=== PATIENT | female | born 1950 | race Caucasian/White ===

== ENCOUNTER 2016-10-07 07:40 | Emergency (ER) | payer MEDICARE, OTHER ==
[2016-10-07 07:48] VITALS: BP 152/78
--- NOTE | 2016-10-07 08:50 | ER Document Report ---
HPI - HPI Patient complains to provider of: left side jaw pain Onset: This morning Onset/Duration: Sudden Quality of pain: Achy Pain Level: 2 Context: Patient states that she frequently will clench and grind her teeth during her sleep. Patient states when she woke up this morning that her jaw initially would not fully open. Patient states that she massaged her jaw, she stretched it and felt multiple pops in her jaw. Patient was then able to fully open her jaw but complains of some continued soreness to the left side. Patient denies any recent injury. Associated Symptoms: Other - Left jaw pain Exacerbated by: Movement Relieved by: Denies Similar symptoms previously: Yes Recently seen / treated by doctor: No - ROS ROS below otherwise negative: Yes Systems Reviewed and Negative: Yes All other systems reviewed and negative - CONSTITUTIONAL Constitutional: DENIES: Fever - EENT Notes: Left jaw pain - CARDIOVASCULAR Cardiovascular: DENIES: Chest pain - RESPIRATORY Respiratory: DENIES: Trouble Breathing, Coughing - GASTROINTESTINAL Gastrointestinal: DENIES: Nausea, Patient vomiting - REPRODUCTIVE Reproductive: DENIES: : - MUSCULOSKELETAL Musculoskeletal: DENIES: Extremity pain, Back Pain, Neck Pain - DERM Skin Color: Normal Skin Problems: None Past Medical History - General Information source: Patient - Social History Smoking Status: Current Every Day Smoker Frequency of alcohol use: None Drug Abuse: None Occupation: none Lives with: Family Family History: Arthritis, CAD, DM, Hypertension, Malignancy Patient has suicidal ideation: No Patient has homicidal ideation: No - Past Medical History Cardiac Medical History: Reports: Hx Hypercholesterolemia, Hx Hypertension Renal/ Medical History: Reports: Hx Kidney Stones. Denies: Hx Peritoneal Dialysis Psychiatric Medical History: Reports: Hx Anxiety - panic attacks, Hx Depression Past Surgical History: Reports: Hx Breast Surgery, Hx Kidney (Renal Surgery) - lithotripsy, Hx Nose Surgery - Immunizations Hx Diphtheria, Pertussis, Tetanus Vaccination: - unsure when last tetnus Vertical Provider Document - CONSTITUTIONAL Agree With Documented VS: Yes Exam Limitations: No Limitations General Appearance: WD/WN, No Apparent Distress - INFECTION CONTROL TRAVEL OUTSIDE OF THE [place] IN LAST 30 DAYS: No - HEENT HEENT: Atraumatic, Normocephalic. negative: Pharyngeal Exudate, Pharyngeal Tenderness, Pharyngeal Erythema, Tympanic Membrane Red, Tympanic Membrane Bulging Notes: Mild tenderness with palpation of left TMJ joint. No crepitus appreciated. Patient able to fully open her jaw without any guarding. - NECK Neck: Normal Inspection, Supple. negative: Lymphadenopathy-Left, Lymphadenopathy-Right - RESPIRATORY Respiratory: Breath Sounds Normal, No Respiratory Distress, Chest Non-Tender O2 Sat by Pulse Oximetry: 96 - CARDIOVASCULAR Cardiovascular: Regular Rate, Regular Rhythm, No Murmur - MUSCULOSKELETAL/EXTREMETIES Musculoskeletal/Extremeties: MAEW - NEURO Level of Consciousness: Awake, Alert, Appropriate - DERM Integumentary: Warm, Dry, No Rash Course - Vital Signs Vital signs: Temp Pulse Resp BP Pulse Ox 97.8 F 71 14 152/78 H 96 10/07/16 07:47 10/07/16 07:47 10/07/16 07:47 10/07/16 07:47 10/07/16 07:47 Discharge - Discharge Clinical Impression: TMJ (temporomandibular joint syndrome), Hx of essential hypertension Condition: Stable Disposition: HOME, SELF-CARE Instructions: Temporomandibular Joint Syndrome ([facility]) Additional Instructions: Return immediately for any new or worsening symptoms Followup with your primary care provider, call tomorrow to make a followup appointment Follow up with supervisor lace tearing Soft diet You may try [id number] anti-inflammatory medication to help with your pain symptoms Forms: Elevated Blood Pressure Referrals: FRANCISCA VO MD [Primary Care Provider] - Follow up as needed ENT [Provider Group] - Follow up as needed [facility] [Provider Group] - Follow up as needed
== END 2016-10-07 08:57 | disposition home or self-care (01) ==
LOC: ER 07:40
DX: M26.622 Arthralgia of left temporomandibular joint (principal); G47.63 Sleep related bruxism; I10 Essential (primary) hypertension; F17.200 Nicotine dependence, unspecified, uncomplicated
CPT/HCPCS: 99283

== ENCOUNTER 2018-03-10 19:30 | Emergency (ER) | payer MEDICARE, OTHER ==
[2018-03-10 19:36] VITALS: BP 168/85
[2018-03-10] MEDS ORDERED: TETRACAINE HCL 0.5% OPH SOLN 4 ML OS ONE (21:31)
[2018-03-10] MEDS ORDERED: POLYMYXIN B SULFATE/TMP OPH SOLN (10 ML/ER DISP) OS PRN (21:45)
--- NOTE | 2018-03-10 21:48 | ER Document Report ---
HPI - HPI Patient complains to provider of: Left eye irritation Onset: This evening Onset/Duration: Gradual Pain Level: Denies Context: Patient presents complaining of left eye irritation and concern about possible foreign body in her eye. Patient states she has had discharged that she has had repeatedly cleaned from her eye. Patient does wear glasses but denies any use of contact lenses. Patient states when she has discharge in her eye her vision becomes blurry but after she removes the discharge her vision clears. Associated Symptoms: Other - Left eye drainage Exacerbated by: Denies Relieved by: Denies Similar symptoms previously: No Recently seen / treated by doctor: No - ROS ROS below otherwise negative: Yes Systems Reviewed and Negative: Yes All other systems reviewed and negative - CONSTITUTIONAL Constitutional: DENIES: Fever - EENT EENT: REPORTS: Eye problems - purulent drainage - NEURO Neurology: DENIES: Headache - DERM Skin Color: Normal Skin Problems: None Past Medical History - General Information source: Patient - Social History Smoking Status: Current Every Day Smoker Smoking Education Provided: Yes Frequency of alcohol use: None Drug Abuse: None Occupation: Retired Family History: Arthritis, CAD, DM, Hypertension, Malignancy Patient has suicidal ideation: No Patient has homicidal ideation: No - Past Medical History Cardiac Medical History: Reports: Hx Hypercholesterolemia, Hx Hypertension Renal/ Medical History: Reports: Hx Kidney Stones. Denies: Hx Peritoneal Dialysis Psychiatric Medical History: Reports: Hx Anxiety - panic attacks, Hx Depression Past Surgical History: Reports: Hx Breast Surgery, Hx Kidney (Renal Surgery) - lithotripsy, Hx Nose Surgery - Immunizations Hx Diphtheria, Pertussis, Tetanus Vaccination: - unsure when last tetnus Vertical Provider Document - CONSTITUTIONAL Agree With Documented VS: Yes Exam Limitations: No Limitations General Appearance: WD/WN, No Apparent Distress - INFECTION CONTROL TRAVEL OUTSIDE OF THE [place] IN LAST 30 DAYS: No - HEENT HEENT: Atraumatic, Normocephalic Notes: Yellow mucoid drainage to the left eye. Conjunctival inflammation and edema to left eye. Extraocular movements intact, Bettye. No corneal foreign body, dendrite, ulcer or fluorescein uptake. - NECK Neck: Normal Inspection - RESPIRATORY Respiratory: No Respiratory Distress - MUSCULOSKELETAL/EXTREMETIES Musculoskeletal/Extremeties: MAEW - NEURO Level of Consciousness: Awake, Alert, Appropriate Motor/Sensory: No Motor Deficit - DERM Integumentary: Warm, Dry, No Rash Course - Vital Signs Vital signs: Temp Pulse Resp BP Pulse Ox 98.1 F 78 18 168/85 H 97 03/10/18 19:35 03/10/18 19:35 03/10/18 19:35 03/10/18 19:35 03/10/18 19:35 Discharge - Discharge Clinical Impression: Conjunctivitis Qualifiers: Conjunctivitis type: unspecified Laterality: left Qualified Code(s): H10.9 - Unspecified conjunctivitis Condition: Stable Disposition: HOME, SELF-CARE Instructions: Conjunctivitis ([facility]), Eyedrop Use ([facility]) Additional Instructions: Return immediately for any new or worsening symptoms Followup with your primary care provider, call tomorrow to make a followup appointment Follow-up with ophthalmology for any persistent problems, call Sunday for an appointment Instill Polytrim 1 drop to left eye 4 times a day for the next 7 days. Forms: Smoking Cessation Education Referrals: FRANCISCA VO MD [Primary Care Provider] - Follow up as needed [facility] [Provider Group] - Follow up as needed
== END 2018-03-10 22:10 | disposition home or self-care (01) ==
LOC: ER 19:30
DX: H10.9 Unspecified conjunctivitis (principal); I10 Essential (primary) hypertension; F17.200 Nicotine dependence, unspecified, uncomplicated; Z71.6 Tobacco abuse counseling
CPT/HCPCS: 99283; J3490 ×2

== ENCOUNTER → 2019-05-22 | Outpatient (CLI) | payer MEDICARE, OTHER ==
--- NOTE | 2019-05-22 14:45 | RADIOLOGY REPORT (SQ) ---
EXAM DESCRIPTION: CHEST 2 VIEWS COMPLETED DATE/TIME: 05/22/2019 1:29 pm REASON FOR STUDY: J15.9 UNSPECIFIED BACTERIAL PNEUMONIA COMPARISON: 11/15/2009 EXAM PARAMETERS: NUMBER OF VIEWS: two views TECHNIQUE: Digital Frontal and Lateral radiographic views of the chest acquired. RADIATION DOSE: NA LIMITATIONS: none FINDINGS: LUNGS AND PLEURA: No opacities, masses or pneumothorax. No pleural effusion. MEDIASTINUM AND HILAR STRUCTURES: No masses or contour abnormalities. HEART AND VASCULAR STRUCTURES: Heart normal size. No evidence for failure. BONES: No acute findings. HARDWARE: None in the chest. OTHER: No other significant finding. IMPRESSION: NO ACUTE RADIOGRAPHIC FINDING IN THE CHEST. TECHNICAL DOCUMENTATION: JOB ID: [id number] [employer]- All Rights Reserved Reading location - IP/workstation name: [email or web address]
== END ==
LOC: RAD 13:01
PROVIDERS: ATTEND Physician Assistant
DX: J15.9 Unspecified bacterial pneumonia (principal)
CPT/HCPCS: 71046